=== PATIENT | female | born 2005 | race Caucasian/White ===

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

== ENCOUNTER 2025-03-27 20:06 | Emergency (ER) | payer MEDICAID ==
[~2025-03-27] VITALS: Ht 154.9 cm; Wt 44.0 kg
[~2025-03-27 20:06] MED LIST changes: +CEPH500T MT; +IBUP-2029 MT
[2025-03-27 20:31] VITALS: TEMP 37.1; O2SAT 100
[2025-03-27] MEDS: ACETAMINOPHEN 325MG TABLET PO ONE (21:18)
[2025-03-27] MEDS ORDERED: BO1 TP (21:52)
[2025-03-27 22:30] VITALS: BP 106/73; PULSE 85; RESP 14; O2SAT 99
== END 2025-03-27 22:33 | disposition home or self-care (01) ==
LOC: ER 20:06
DX: T24.112A Burn of first degree of left thigh, initial encounter (principal); J45.909 Unspecified asthma, uncomplicated; Z79.899 Other long term (current) drug therapy; T31.0 Burns involving less than 10% of body surface; X58.XXXA Exposure to other specified factors, initial encounter; Y93.89 Activity, other specified; Y92.89 Other specified places as the place of occurrence of the external cause; Y99.8 Other external cause status
CPT/HCPCS: 99282